=== PATIENT | male | born 1950 | race Native Hawaiian/Other Pacific Islander ===

== ENCOUNTER 2016-12-07 12:16 | Outpatient (CLI) | payer OTHER ==
[2016-12-07 12:56] LABS: PLATELET COUNT 217 K/uL (142-355)
[2016-12-07 13:09] LABS: POTASSIUM 4.3 mmol/L (3.6-5.2)
== END 2016-12-07 20:50 | disposition home or self-care (01) ==
LOC: LABW 12:16
PROVIDERS: Internal Medicine Nephrology
DX: I12.9 Hypertensive chronic kidney disease with stage 1 through stage 4 chronic kidney disease, or unspecified chronic kidney disease (principal); N25.81 Secondary hyperparathyroidism of renal origin; R79.89 Other specified abnormal findings of blood chemistry
CPT/HCPCS: 36415; 80069; 82570; 82728; 83540; 83550; 83970; 84155; 85027

== ENCOUNTER 2016-12-26 07:43 | Outpatient (CLI) | payer OTHER ==
[2016-12-26 09:31] LABS: PLATELET COUNT 215 K/uL (142-355)
== END 2016-12-26 19:05 | disposition home or self-care (01) ==
LOC: LABW 07:43
PROVIDERS: Internal Medicine
DX: E78.00 Pure hypercholesterolemia, unspecified (principal); E78.4 Other hyperlipidemia; I10 Essential (primary) hypertension; E11.9 Type 2 diabetes mellitus without complications
CPT/HCPCS: 36415; 80053; 80061; 82607; 82746; 83036; 84153; 84443; 85027

== ENCOUNTER 2017-03-22 06:48 | Outpatient (CLI) | payer OTHER ==
[2017-03-22 07:43] LABS: PLATELET COUNT 227 K/uL (142-355)
[2017-03-22 08:07] LABS: POTASSIUM 4.9 mmol/L (3.6-5.2)
== END 2017-03-22 08:00 | disposition home or self-care (01) ==
LOC: LABW 06:48
PROVIDERS: Internal Medicine
DX: E78.00 Pure hypercholesterolemia, unspecified (principal); E78.4 Other hyperlipidemia; I10 Essential (primary) hypertension; R73.09 Other abnormal glucose
CPT/HCPCS: 36415; 80053; 83036; 85027

== ENCOUNTER 2017-05-09 11:41 | Outpatient (CLI) | payer OTHER ==
[2017-05-09 12:03] LABS: PLATELET COUNT 213 K/uL (142-355)
[2017-05-09 12:41] LABS: POTASSIUM 4.3 mmol/L (3.6-5.2)
== END 2017-05-09 20:02 | disposition home or self-care (01) ==
LOC: LABW 11:41
PROVIDERS: Internal Medicine Nephrology
DX: I12.9 Hypertensive chronic kidney disease with stage 1 through stage 4 chronic kidney disease, or unspecified chronic kidney disease (principal); N25.81 Secondary hyperparathyroidism of renal origin; R79.89 Other specified abnormal findings of blood chemistry
CPT/HCPCS: 36415; 80069; 82570; 82728; 83540; 83550; 83970; 84155; 85027

== ENCOUNTER 2017-08-13 06:50 | Outpatient (CLI) | payer OTHER ==
[2017-08-13 07:48] LABS: PLATELET COUNT 242 K/uL (142-355)
[2017-08-13 08:13] LABS: POTASSIUM 4.8 mmol/L (3.6-5.2)
== END 2017-08-13 19:02 | disposition home or self-care (01) ==
LOC: LABW 06:50
PROVIDERS: Internal Medicine
DX: E11.9 Type 2 diabetes mellitus without complications (principal)
CPT/HCPCS: 36415; 80053; 80061; 85027

== ENCOUNTER 2017-12-23 11:12 | Outpatient (CLI) | payer OTHER ==
[2017-12-23 13:04] LABS: POTASSIUM 4.4 mmol/L (3.6-5.2)
== END 2017-12-23 20:26 | disposition home or self-care (01) ==
LOC: LABW 11:12
PROVIDERS: Internal Medicine Nephrology
DX: I12.9 Hypertensive chronic kidney disease with stage 1 through stage 4 chronic kidney disease, or unspecified chronic kidney disease (principal); N25.81 Secondary hyperparathyroidism of renal origin
CPT/HCPCS: 36415; 80069; 82570; 83970; 84155

== ENCOUNTER 2018-07-23 13:25 | Outpatient (CLI) | payer OTHER ==
[2018-07-23 13:52] LABS: PLATELET COUNT 213 K/uL (142-355)
[2018-07-23 14:25] LABS: POTASSIUM 4.7 mmol/L (3.6-5.2)
== END 2018-07-23 19:35 | disposition home or self-care (01) ==
LOC: LABW 13:25
PROVIDERS: Internal Medicine Nephrology
DX: I12.9 Hypertensive chronic kidney disease with stage 1 through stage 4 chronic kidney disease, or unspecified chronic kidney disease (principal); N25.81 Secondary hyperparathyroidism of renal origin
CPT/HCPCS: 36415; 80069; 82570; 82728; 83540; 83550; 83970; 84155; 85027

== ENCOUNTER 2018-12-18 11:49 | Outpatient (CLI) | payer OTHER ==
[2018-12-18 12:17] LABS: POTASSIUM 4.8 mmol/L (3.6-5.2)
== END 2018-12-18 23:22 | disposition home or self-care (01) ==
LOC: LABW 11:49
PROVIDERS: Internal Medicine Nephrology
DX: I12.9 Hypertensive chronic kidney disease with stage 1 through stage 4 chronic kidney disease, or unspecified chronic kidney disease (principal)
CPT/HCPCS: 36415; 80069

== ENCOUNTER 2019-02-25 14:58 | Outpatient (CLI) | payer OTHER ==
[2019-02-25 15:41] LABS: PLATELET COUNT 197 K/uL (142-355)
[2019-02-25 16:44] LABS: POTASSIUM 4.5 mmol/L (3.6-5.2)
== END 2019-02-25 20:43 | disposition home or self-care (01) ==
LOC: LABW 14:58
PROVIDERS: Internal Medicine Nephrology
DX: I12.9 Hypertensive chronic kidney disease with stage 1 through stage 4 chronic kidney disease, or unspecified chronic kidney disease (principal); N25.81 Secondary hyperparathyroidism of renal origin; N18.4 Chronic kidney disease, stage 4 (severe)
CPT/HCPCS: 36415; 80069; 82570; 82728; 83540; 83550; 83970; 84155; 85027

== ENCOUNTER 2019-06-24 10:00 | Outpatient (CLI) | payer OTHER ==
[2019-06-24 10:49] LABS: POTASSIUM 4.7 mmol/L (3.6-5.2)
== END 2019-06-24 23:45 | disposition home or self-care (01) ==
LOC: LABW 10:00
PROVIDERS: Internal Medicine Nephrology
DX: I12.9 Hypertensive chronic kidney disease with stage 1 through stage 4 chronic kidney disease, or unspecified chronic kidney disease (principal); N25.81 Secondary hyperparathyroidism of renal origin
CPT/HCPCS: 36415; 80069; 83970

== ENCOUNTER 2019-09-02 11:26 | Outpatient (CLI) | payer OTHER ==
[2019-09-02 11:41] LABS: PLATELET COUNT 227 K/uL (142-355)
== END 2019-09-02 19:14 | disposition home or self-care (01) ==
LOC: LABW 11:26
PROVIDERS: Internal Medicine Nephrology
DX: I12.9 Hypertensive chronic kidney disease with stage 1 through stage 4 chronic kidney disease, or unspecified chronic kidney disease (principal); N25.81 Secondary hyperparathyroidism of renal origin; E61.1 Iron deficiency
CPT/HCPCS: 36415; 80069; 82570; 82728; 83540; 83550; 83970; 84155; 85027

== ENCOUNTER → 2021-08-02 | Outpatient (CLI) | payer OTHER | LOC: RAD 07:57 | PROVIDERS: ATTEND Internal Medicine | DX: R06.02 Shortness of breath (principal) ==